=== PATIENT | male | born 1975 | race Caucasian/White ===

== ENCOUNTER 2024-04-18 15:19 | Observation (INO) | payer SELFPAY ==
[2024-04-18] VITALS (11 sets, daily range): BP systolic 103–128; BP diastolic 60–80; PULSE 62–88; RESP 16–17; TEMP 36.6–37; O2SAT 95–100; BMI 19.8
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
[2024-04-18] MEDS: tetanus-dipt-pertussis 0.5 mL SDV IM (18:16)
[2024-04-18 18:26] LABS: Basophils % 0.7 %; Eosinophils # 0.1 10^3/uL (0.0-0.8); Eosinophils % 1.6 %; Hematocrit 38.7 % (37-53); Lymphocytes # 0.6 10^3/uL (0.8-4.8); Lymphocytes % 10.3 %; Mean Corpuscular HGB Conc 34.6 g/dL (30-55); Mean Corpuscular Hemoglobin 29.6 pg (27-33); Mean Corpuscular Volume 85.4 fl (82-101); Mean Platelet Volume 10.3 fL (7.4-10.4); Monocytes # 0.7 10^3/uL (0.2-0.9); Monocytes % 12.2 %; Neutrophils # 4.57 10^3/uL (1.8-7.7); Nucleated Red Blood Cells % 0 %; Platelet Count 187 10^3/cmm (157-399); Red Blood Count 4.53 10^6/uL (3.85-5.65); Red Cell Distribution Width 12.5 % (12.1-15.1); White Blood Count 6.09 10^3/uL (3.29-11.43)
--- NOTE | 2024-04-18 18:46 | PC.NURSE ---
PT STATES HE DOESNT WANT TO TAKE NORCO AT THIS TIME BUT LATER WHEN HE LEAVES. DR CHAVIRA NOTIFIED AND OKAY WITH THIS.
[2024-04-18 18:57] LABS: Amphetamines Screen Urine Negative (Negative); Barbiturates Screen Urine Negative (Negative); Benzodiazepines Screen Urine Negative (Negative); Cocaine Screen Urine Negative (Negative); Opiate Screen Urine Negative (Negative); PCP Screen Urine Negative (Negative); THC Screen Urine Negative (Negative)
[2024-04-18 19:20] LABS: Alanine Aminotransferase 105 U/L (0-41); Albumin Level 4.1 g/dL (3.5-5.2); Alkaline Phosphatase 65 U/L (40-130); Anion Gap 17.6 (5-19); Aspartate Amino Transferase 160 U/L (0-40); Blood Urea Nitrogen 26 mg/dL (6-20); Carbon Dioxide 25 mmol/L (22-29); Chloride 98 mmol/L (98-107); Creatinine Clr Calc Pharmacy 85.4041; Globulin 2.2 g/dL (1.3-4.6); Glomerular Filtration Rate 70.9 mL/min (90-130); Glucose 137 mg/dL (65-115); Osmolality Calculated 291 mOsm/kg (285-295); Potassium 3.6 mmol/L (3.5-5.1); Sodium 137 mmol/L (136-145); Total Bilirubin 1.1 mg/dL (0.15-1.2); Total Protein 6.3 g/dL (6.6-8.7)
[2024-04-18] MEDS: sodium chloride 0.9% 1,000 ML 999 ML IV ×2 (19:57→20:58)
[2024-04-18 20:00] LABS: Creatine Phosphokinase 3303 U/L (39-308)
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
--- NOTE | 2024-04-18 23:46 | PC.NURSE ---
cleaned wound on left hand with povidone-iodine swabs then used glue to seal wound.
--- NOTE | 2024-04-19 00:18 | PC.NURSE ---
Pt refused Lovenox. pt educated on the purpose of VTE prophylaxis and pt continued to refuse. pt educated on the importance of movement and turning to prevent blood clots. notified.
[2024-04-19 00:19] LABS: Estmated Average Glucose 111; Hemoglobin A1C 5.5 % (4.0-6.0)
[2024-04-19] MEDS: sodium chloride 0.9% 1,000 ML 75 ML IV (00:38)
[2024-04-19 01:08] LABS: Thyroid Stimulating Hormone 1.58 uIU/mL (0.27-4.20); Vitamin B12 913 pg/mL (232-1245)
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
[2024-04-19 04:00] VITALS: BP 106/65; PULSE 67; RESP 16; TEMP 36.8; O2SAT 97
[2024-04-19 06:19] LABS: Basophils % 0.7 %; Eosinophils # 0.2 10^3/uL (0.0-0.8); Eosinophils % 5.3 %; Hematocrit 35.1 % (37-53); Lymphocytes # 0.9 10^3/uL (0.8-4.8); Lymphocytes % 19.2 %; Mean Corpuscular HGB Conc 33.6 g/dL (30-55); Mean Corpuscular Hemoglobin 29.1 pg (27-33); Mean Corpuscular Volume 86.5 fl (82-101); Mean Platelet Volume 10.7 fL (7.4-10.4); Monocytes # 0.7 10^3/uL (0.2-0.9); Monocytes % 15.4 %; Neutrophils # 2.66 10^3/uL (1.8-7.7); Neutrophils % 59.2 %; Nucleated Red Blood Cells % 0 %; Platelet Count 148 10^3/cmm (157-399); Red Blood Count 4.06 10^6/uL (3.85-5.65); Red Cell Distribution Width 12.4 % (12.1-15.1); White Blood Count 4.49 10^3/uL (3.29-11.43)
[2024-04-19 06:45] LABS: Alanine Aminotransferase 73 U/L (0-41); Albumin Level 3.2 g/dL (3.5-5.2); Alkaline Phosphatase 61 U/L (40-130); Anion Gap 12.6 (5-19); Aspartate Amino Transferase 96 U/L (0-40); Blood Urea Nitrogen 21 mg/dL (6-20); C Reactive Protein 11.4 mg/L (0.0-4.9); Calcium 8.2 mg/dL (8.5-10.5); Carbon Dioxide 25 mmol/L (22-29); Chloride 109 mmol/L (98-107); Creatinine Clr Calc Pharmacy 105.0378; Globulin 1.8 g/dL (1.3-4.6); Glomerular Filtration Rate 89.3 mL/min (90-130); Glucose 127 mg/dL (65-115); Magnesium 1.9 mg/dL (1.7-2.3); Osmolality Calculated 299 mOsm/kg (285-295); Phosphorus 3.3 mg/dL (2.5-4.5); Potassium 4.6 mmol/L (3.5-5.1); Sodium 142 mmol/L (136-145); Total Bilirubin 0.7 mg/dL (0.15-1.2)
[2024-04-19 07:19] VITALS: BP 102/64; PULSE 73; RESP 18; TEMP 36.7; O2SAT 97
[2024-04-19 07:20] LABS: Creatine Phosphokinase 1682 U/L (39-308)
[2024-04-19] MEDS: doxycycline 100 mg Tablet PO (08:45)
--- NOTE | 2024-04-19 09:23 | PC.CHAP ---
Pastoral Care Encounter/Spiritual Assessment Type of Contact [] Declined case specialist visit [] Patient/Family/Request visit [] Outpatient visit [] Follow-up visit [] Physician referral [] Code/Alert [x] Routine visit [] Staff referral [] Actively dying [] Patient sleeping [x] Family support [] [] Out of room [] Palliative care [] [] Receiving care in room [] Pre-surgical visit [] Trauma [] Long length of stay [] ICU visit [] Other: Relational/Emotional Strength [x] Patient feels connected with others/family/visitors/staff [] Distress [] Loneliness/isolation [] Abandonment Spirituality of Patient [x] Person of Ines [] Attends Jewish of their Ines [x] Believes in Prayer [] Reads Bible or Christianity materials [] There are Spiritual issues to be addressed Polystyrene Bead Molder Interventions [x] Prayer [x] Active listening [x] Non-anxious presence [x] Spiritual/emotional support [] Crisis/trauma care [] Spiritual counseling [] Bereavement support [] Provided bereavement packet [] Provided Bible/devotional materials [] Provided toy/stuffed animal, coloring book to patient or family member [] Provided Communion [] Anointing/Tibbie [] Salvation [x] Completed spiritual assessment [] Other: Impact on Illness or Injury [] Angry [] Fearful [] Anxious [] Often cries [] Exhaustion [] Unable to work [] Unable to attend jain [] Unable to walk/stand [] Unable to read [] Unable to drive [] Unable to eat/drink [] Unable to sleep [] Unable to be with family [] Patient intubated [] Other: Summary Time spent with patient 5 min
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
--- NOTE | 2024-04-19 11:01 | PC.NURSE ---
Discharge Note Patient discharged to home via personal vehicle accompanied by friends. Discharge instructions reviewed with patient and/or accounts payable representative. Mobile pharmacy medications and/or prescriptions provided. Belongings/home medications returned. Educated patient that antibiotic prescribed needed to be completed in entirety and that could cause sunburn easily, so to wear sunscreen when outside. Instructed that if symptoms got worse to come to the ER.
[2024-04-19 11:03] VITALS: BP 102/64; PULSE 73; RESP 18; TEMP 36.7; O2SAT 97
== END 2024-04-19 09:15 | disposition home or self-care (01) ==
LOC: ER 21:10 → MEDSURG 23:27
PROVIDERS: Admitting Provider Internal Medicine; Emergency Provider Emergency Medicine; Visit Provider Internal Medicine
DX: E86.0 Dehydration (principal); M62.82 Rhabdomyolysis; Z87.891 Personal history of nicotine dependence; J43.8 Other emphysema; M47.812 Spondylosis without myelopathy or radiculopathy, cervical region
CPT/HCPCS: 36415; 70450; 71045; 72125; 73030; 80053; 80306; 82550; 82607; 83036; 83735; 84100; 84443; 85025; 86140; 90471; 90715; 96360; 96361; 99285; G0378; J7030